=== PATIENT | female | born 1975 | race Caucasian/White ===

== ENCOUNTER 2016-11-19 06:04 | Observation (INO) | payer OTHER ==
[2016-11-19 06:06] VITALS: BMI 42.2
--- NOTE | 2016-11-19 06:13 | ED PDOC ---
HPI:STROKE - Time Time: 06:05 - Historian Historian: Patient, EMS - Chief Complaint Chief Complaint: Mental status change - Onset Date: 11/19/16 Onset: Just prior to presenting - Timing Timing: Currently Symptomatic - Notes: Notes:: 41yo female with PMHx including CVA presents to the ED via EMS for eval of mental status change. EMS reports patient was complaining of chest pain and difficulty breathing and then became unable to communicate. EMS states bp was elevated at 180/90 with O2 sat at 99%. EMS notes patient's eyes rolled back for a couple seconds [address] to the ED. On arrival to ED, patient unable to provide hx due to aphasia. A couple minutes into provider interview, patient able to report feeling like she was going to pass out with (+) dizziness. Also reports feeling like her heart was going to stop beating. Patient now states she understood provider's original questions but was unable to articulate responses. Of note, patient's left side was paralyzed last CVA. NIHSS Stroke Scale - Date/Time Evaluation Performed Date Performed: 11/18/16 Time Performed: 06:00 When Was NIHSS Performed: Baseline - How Severe is the Stroke Level of Consciousness: 0=Alert LOC to Questions: 0=Both comments correct LOC to commands: 0=Obeys both correctly Visual: 0=No visual loss Facial: 0=Normal Motor Arm - Left: 0=No drift Motor Arm - Right: 0=No drift Motor Leg - Left: 0=No drift Motor Leg - Right: 0=No drift Limb Ataxia: 0=Absent Sensory: 0=Normal Best Language: 0=No aphasia Dysarthia: 0=Normal articulation Extinction & Inattention (Neglect): 0=Normal, no object Severity Of Stroke: 0 = No Stroke rTPA Inclusion/Exclusion - Refusal of Treatment Patient Refused Treatment: No - Inclusion Criteria for Altepase Patient is 18 years or Older: No The Clinical Diagnosis of Ischemic Stroke That is Causing a Potentially Disabling Neurological Deficit: No Time of Onset is Well Established to be Less Than 270 Minute Before Treatment Would Begin: No Risk/Benefit Discussed With Patient/Family Member Present: No - Exclusion Criteria for Altepase Uncontrolled Hypertension at Time of Treatment (Systolic BP above 185 or Diastolic BP above 110 mmHg): No Active Internal Bleeding: No Known Bleeding Diathesis Including but Not Limited to: Platelets Below 100,000/ mm,PTT Above 40 sec After Heparin Use, Current Use of Oral Anitcoagulant With INR Greater Than 1.7 or PT Greater Than 15 secs: No Evidence of an Intracranial Hemorrhage: No Evidence of Major Acute Infarct With Signs Greater Than 1/3 MCA Territory: No Suspicion of Subarachnoid Hemorrhage on Pretreatment Evaluation Even if CT Head Negative For Hemorrhage: No - Warning to TPA With Conditions Following Conditions Weighed Against Anticipated Benefit: No Past Medical History Reviewed: Historical Data, Nursing Documentation, Vital Signs Vital Signs: Last Vital Signs Temp Pulse 73 11/19/16 06:07 Resp 16 11/19/16 06:07 BP 175/79 H 11/19/16 06:07 Pulse Ox 100 11/19/16 06:07 - Medical History PMH: CVA, TIA Denies: Depression - Surgical History Surgical History: No Surg Hx - Family History Family History: States: No Known Family Hx - Social History Current smoker - smoking cessation education provided: No Alcohol: None Drugs: Denies - Home Medications Home Medications: Ambulatory Orders Medication Instructions Recorded No Known Home Med 11/19/16 - Allergies Allergies/Adverse Reactions: Allergies Allergy/AdvReac Type Severity Reaction Status Date / Time aspirin Allergy ANAPHYLAXIS Verified 11/19/16 06:49 ibuprofen Allergy ANGIOEDEMA Verified 11/19/16 06:10 naproxen [From Aleve] Allergy ANGIOEDEMA Verified 11/19/16 06:35 Review of Systems ROS Statement: Except As Marked, All Systems Reviewed And Found Negative Cardiovascular: Positive for: Chest Pain, Other (elevated bp ) Respiratory: Positive for: Shortness of Breath Neurological: Positive for: Altered Mental Status, Dizziness, Other (felt like she was going to pass out ) Physical Exam - Reviewed Nursing Documentation Reviewed: Yes Vital Signs Reviewed: Yes - Physical Exam Appears: Positive for: No Acute Distress Head Exam: Positive for: ATRAUMATIC, NORMAL INSPECTION, NORMOCEPHALIC Skin: Positive for: Normal Color, Warm, Dry Eye Exam: Positive for: Normal appearance, EOMI, PERRL ENT: Positive for: Normal ENT Inspection Neck: Positive for: Normal, Painless ROM, Supple Cardiovascular/Chest: Positive for: Regular Rate, Rhythm. Negative for: Murmur , Tachycardia Respiratory: Positive for: Normal Breath Sounds. Negative for: Wheezing, Respiratory Distress Gastrointestinal/Abdominal: Positive for: Normal Exam, Soft. Negative for: Tenderness Back: Positive for: Normal Inspection Extremity: Positive for: Normal ROM. Negative for: Deformity, Swelling Neurologic/Psych: Positive for: Alert, Oriented, Aphasia. Negative for: Motor/ Sensory Deficits, Facial Droop - Laboratory Results Result Diagrams: 11/19/16 06:10 11/19/16 06:10 - ECG ECG: Positive for: Interpreted By Me, Viewed By Me ECG Rhythm: Positive for: Sinus Rhythm (NSR at 66 bpm ) O2 Sat by Pulse Oximetry: 100 Pulse Ox Interpretation: Normal (RA) Medical Decision Making Medical Decision Makin: Impression: r/o CVA Plan: Type and screen CT head EKG Labs CXR IVF reassess 0627: CT head impression: 1. Minimal ethmoid and bilateral maxillary sinus disease. 2. Otherwise negative noncontrast head CT. 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 Will order plavix instead because pt has been on plavix before per records with no adverse reaction. Patient s/o to Dr. Escudero at 0700 pending labs and reeval and call back from neuyrology condemnation engineer dr mckeon 0654: Neurology on-call paged. Scribe Attestation: Documented by Kendrick Helms acting as a scribe for Aram Ac MD. Provider Scribe Attestation: All medical record entries made by the Scribe were at my direction and personally dictated by me. I have reviewed the chart and agree that the record accurately reflects my personal performance of the history, physical exam, medical decision making, and the department course for this patient. I have also personally directed, reviewed, and agree with the discharge instructions and disposition. Disposition - Clinical Impression Clinical Impression: TIA (transient ischemic attack) - Patient ED Disposition Is Patient to be Admitted: Transfer of Care - Disposition Disposition: Transfer of Care Disposition Time: 07:00 Condition: STABLE Patient Signed Over To: Francisco Escudero Handoff Comments: pending labs and reeval and neuro consult
[2016-11-19 06:34] LABS: BASO # 0.1 K/uL (0.0-0.2); BASO % 1.2 % (0.0-2.0); EOS # 0.2 K/uL (0.0-0.7); EOS % 3.2 % (0.0-4.0); HEMATOCRIT 37.5 % (34.0-47.0); LYMPH % 53.4 % (20.0-40.0); MEAN CELL VOLUME 85.6 fl (81.0-99.0); MEAN CORPUSCULAR HEMOGLOBIN 28.6 pg (27.0-31.0); MEAN CORPUSCULAR HGB CONC 33.5 g/dL (33.0-37.0); MEAN PLATELET VOLUME 10.4 fl (7.2-11.7); MONO # 0.5 K/uL (0.0-0.8); MONO % 6.6 % (0.0-10.0); NEUT # 2.7 K/uL (1.8-7.0); NEUT % 35.6 % (50.0-75.0); NRBC % 0.3 % (0.0-0.0); RED CELL DISTRIBUTION WIDTH 14.1 % (11.5-14.5); WHITE BLOOD COUNT 7.5 K/uL (4.8-10.8)
[2016-11-19 06:37] LABS: CHOLESTEROL 241 mg/dL (0-199)
[2016-11-19 06:40] LABS: PARTIAL THROMBOPLASTIN TIME 28.3 Seconds (25.6-37.1)
[2016-11-19 07:40] LABS: ALB/GLOB RATIO 1.3 (1.0-2.1); ALKALINE PHOSPHATASE 67 U/L (38-126); ALT/SGPT 27 U/L (9-52); AST/SGOT 25 U/L (14-36); BILIRUBIN,TOTAL 0.3 mg/dl (0.2-1.3); BLOOD UREA NITROGEN 9 mg/dl (7-17); CALCIUM 9.2 mg/dL (8.4-10.2); CARBON DIOXIDE 19 mmol/L (22-30); CHLORIDE 106 mmol/L (98-107); GFR AFRICAN-AMERICAN > 60; GLUCOSE,RANDOM 97 mg/dL (65-105); POTASSIUM 3.1 MMOL/L (3.6-5.0); SODIUM 140 mmol/l (132-148); TOTAL PROTEIN 7.8 G/DL (6.3-8.2)
[2016-11-19] MEDS ORDERED: Potassium Chloride 20 mEq ER Tab PO ONE ×2 (07:58→08:02)
--- NOTE | 2016-11-19 08:17 | ED PDOC ---
- Laboratory Results Result Diagrams: 11/19/16 06:10 11/19/16 06:10 - ECG O2 Sat by Pulse Oximetry: 100 (RA) Pulse Ox Interpretation: Normal - Radiology X-Ray: Interpreted by Me, Viewed By Me X-Ray Interpretation: No Acute Disease Medical Decision Making Medical Decision Makin:00 Patient was signed out to me by Aram Ac MD pending ED workup, reevaluation and final disposition. Scribe Attestation: Documented by Jane Vergara, acting as a scribe for Francisco Escudero MD. Provider Scribe Attestation: All medical record entries made by the Scribe were at my direction and personally dictated by me. I have reviewed the chart and agree that the record accurately reflects my personal performance of the history, physical exam, medical decision making, and the department course for this patient. I have also personally directed, reviewed, and agree with the discharge instructions and disposition. Disposition Counseled Patient/Family Regarding: Studies Performed, Diagnosis - Clinical Impression Clinical Impression: TIA (transient ischemic attack) - POA Present On Arrival: None - Disposition Disposition: Hospitalized as Observation Patient Disposition Time: 09:00 Condition: STABLE
--- NOTE | 2016-11-19 10:33 | CT ---
PROCEDURE: CT HEAD WITHOUT CONTRAST. HISTORY: code stroke COMPARISON: None available. TECHNIQUE: Axial computed tomography images were obtained through the head/brain without intravenous contrast. Radiation dose: Total exam DLP = 1125.06 mGy-cm. This CT exam was performed using one or more of the following dose reduction techniques: Automated exposure control, adjustment of the mA and/or kV according to patient size, and/or use of iterative reconstruction technique. FINDINGS: HEMORRHAGE: No intracranial hemorrhage. BRAIN: No mass effect or edema. No atrophy or chronic microvascular ischemic changes. VENTRICLES: Unremarkable. No hydrocephalus. CALVARIUM: Unremarkable. PARANASAL SINUSES: Unremarkable as visualized. No significant inflammatory changes. MASTOID AIR CELLS: Unremarkable as visualized. No inflammatory changes. OTHER FINDINGS: None. IMPRESSION: No acute intracranial abnormalities. No significant findings to account for the clinical presentation. Concordant results (preliminary interpretation) provided by [facility]. Procedure Completed: 06:15. Preliminary ([facility]) Report: Dictated and Authenticated: 06:27. Final Interpretation: 10:31. November 07, 2016.
--- NOTE | 2016-11-19 11:34 | RAD ---
HISTORY: Presyncope COMPARISON: None available. TECHNIQUE: Chest, one view. FINDINGS: Examination limited by habitus. LUNGS: No focal consolidation. Please note that chest x-ray has limited sensitivity for the detection of pulmonary masses. PLEURA: No significant pleural effusion identified. No definite pneumothorax . CARDIOVASCULAR: The cardiomediastinal silhouette appears within normal limits of size. OSSEOUS STRUCTURES: No acute osseous abnormality identified. VISUALIZED UPPER ABDOMEN: Unremarkable. OTHER FINDINGS: None. IMPRESSION: No focal consolidation, significant pleural effusion, or definite pneumothorax identified.
[2016-11-19 12:17] VITALS: RESP 18
--- NOTE | 2016-11-19 15:16 | CP.PCM.CON ---
History of Present Illness - History of Present Illness History of Present Illness: NEURO CONSULT NOTE: 11/19/16 CHIEF COMPLAINT: PARASTHESIAS AND SLURRED SPEECH HPI: 41 YEAR OLD WOMAN WITH H/O OF OBESITY, HTN WHO PRESENTED TO THE HOSPITAL WITH CHEST PAIN, DIFFICULTY BREATHING, PARASTHESIAS OF FACE AND EXTREMITIES AND DIFFICULTY GETTING OUT WORDS WHICH RESOLVED DRAMATICALLY. SHE HAS BEEN UNDER A LOT OF STRESS DUE TO THE PASSING OF HER SISTER. HER NEURO EXAM IS NONFOCAL AND SHE IS WALKING AROUND W/O ANY DIFFICULTIES. CAT SCAN OF THE HEAD IS NEGATIVE. ROS: 14 POINT REVIEW OF SYMPTOMS IS NEGATIVE PER HPI. ALLERGIES: NSAIDS SOCIAL HISTORY: NO ILLICIT DRUG USE, SMOKING, OR ETOH USE. FAMILY: NON CONTRIBUTORY. MEDICATIONS: REVIEWED BY NURSE'S RECONCILIATION SHEET. PAST MEDICAL HISTORY: MORBIDLY OBESE WITH PMH OF HTN, PHYSICAL EXAM: VITAL SIGNS: REVIEWED BY THE CHART GENERAL EXAM: PATIENT SEEN IN BED, IN NO ACUTE DISTRESS MORBIDLY OBESE. HEENT: PERRLA, EOMI, NECK SUPPLE, NO JVD, NO ADENOPATHY CVS: S1, S2, RRR, NO MURMURS NOTED LUNGS: CLEAR TO AUSCULTATION, NO ADVENTITIOUS SOUNDS ABDOMEN: SOFT AND NONTENDER EXTREMITIES: NO CLUBBING OR CYANOSIS. PP 2+ B/L NEURO: PT IS ALERT AND ORIENTED TO PERSON, PLACE, AND YEAR. POOR ATTENTION SPAN , SLOW THOUGHT PROCESS, RECALL TO 5 MINUTES 0/3, SPEECH IS FLUENT WITHOUT ERRORS, CN II-XII INTACT, MOTOR EXAM: NORMAL TONE, NORMAL BULK OF MUSCLE, MOVES ALL EXTREMITIES EQUALLY, NO PRONATOR DRIFT SEEN. SENSORY EXAM: LIGHT TOUCH, PIN PRICK UP TO CALVES B/L, PROPRIOCEPTION , VIBRATION ARE INTACT B/L DEEP TENDON REFLEXES: 2+ THROUGHOUT. COORDINATION: FINGER TO NOSE IS INTACT. HEEL TO PARK IS INTACT GAIT: NORMAL. LABS: REVIEWED BY THE CHART. ASSESSMENT AND PLAN: 41 YEAR OLD WOMAN WITH H/O OF OBESITY, HTN WHO PRESENTED TO THE HOSPITAL WITH CHEST PAIN, DIFFICULTY BREATHING, PARASTHESIAS OF FACE AND EXTREMITIES AND DIFFICULTY GETTING OUT WORDS WHICH RESOLVED DRAMATICALLY. SHE HAS BEEN UNDER A LOT OF STRESS DUE TO THE PASSING OF HER SISTER. HER NEURO EXAM IS NONFOCAL AND SHE IS WALKING AROUND W/O ANY DIFFICULTIES. CAT SCAN OF THE HEAD IS NEGATIVE. IMPRESSION: PARASTHESIAS AND DIFFICULTY GETTING OUT WORDS ARE SECONDARY TO HER PANIC ATTACK PLAN: 1.. ASA 81 MG FOR STROKE PREVENTION 2. MONITOR ELECTROLYTES AND CORRECT ACCORDINGLY. 3. D/C HOME THANK YOU PLEASE RECONSULT NECESSARY. Adele REARDON MD Past Patient History - Infectious Disease Hx of Infectious Diseases: None - Tetanus Immunizations Tetanus Immunization: Unknown - Past Social History Smoking Status: Unknown If Ever Smoked - CARDIAC Hx Cardiac Disorders: No - PULMONARY Hx Respiratory Disorders: No - NEUROLOGICAL Hx Neurological Disorder: Yes (CVA/TIA) - HEENT Hx HEENT Problems: No - RENAL Hx Chronic Kidney Disease: No - ENDOCRINE/METABOLIC Hx Endocrine Disorders: No - HEMATOLOGICAL/ONCOLOGICAL Hx Blood Disorders: No - INTEGUMENTARY Hx Dermatological Problems: No - MUSCULOSKELETAL/RHEUMATOLOGICAL Hx Musculoskeletal Disorders: No - GENITOURINARY/GYNECOLOGICAL Hx Genitourinary Disorders: No - PSYCHIATRIC Hx Psychophysiologic Disorder: No - SURGICAL HISTORY Hx Section: Yes Meds Allergies/Adverse Reactions: Allergies Allergy/AdvReac Type Severity Reaction Status Date / Time aspirin Allergy ANAPHYLAXIS Verified 11/19/16 06:49 ibuprofen Allergy ANGIOEDEMA Verified 11/19/16 06:10 naproxen [From Aleve] Allergy ANGIOEDEMA Verified 11/19/16 06:35 Results - Vital Signs Recent Vital Signs: Last Vital Signs Temp 98 F 11/19/16 08:31 Pulse 71 11/19/16 12:23 Resp 18 11/19/16 12:23 BP 134/75 11/19/16 12:23 Pulse Ox 100 11/19/16 10:56 - Labs Result Diagrams: 11/19/16 06:10 11/19/16 06:10
[2016-11-19 15:29] VITALS: BP 131/85; PULSE 60; TEMP 98.8
--- NOTE | 2016-11-20 11:44 | CARD ---
APPROVED REPORT EKG Measurement Heart [id number] <Conclusion> Normal sinus rhythm Normal ECG
[2016-11-20 14:49] VITALS: O2SAT 100
== END 2016-11-19 15:00 | disposition left against medical advice (07) ==
LOC: H.ER 06:04 → H.ERHOLD 09:26 → H.TEL 12:39
PROVIDERS: ADMIT Internal Medicine; ATTEND Internal Medicine
DX: F41.0 Panic disorder [episodic paroxysmal anxiety] (principal); I10 Essential (primary) hypertension; R20.8 Other disturbances of skin sensation; E66.01 Morbid (severe) obesity due to excess calories; R47.01 Aphasia; Z68.41 Body mass index [BMI] 40.0-44.9, adult; Z86.73 Personal history of transient ischemic attack (TIA), and cerebral infarction without residual deficits; Z88.6 Allergy status to analgesic agent